=== PATIENT | female | born 1965 | race Caucasian/White ===

== ENCOUNTER 2022-04-13 17:14 | Emergency (ER) | payer MEDICAID ==
[~2022-04-13] VITALS: Ht 162.6 cm; Wt 63.2 kg
[2022-04-13 17:28] VITALS: BP 138/82
--- NOTE | 2022-04-13 17:40 | NUR ---
BIB SELF C/O 11/06 LEFT FOREARM PAIN, REDNESS, SWELLING S/P BUG BITE X YESTERDAY.
[2022-04-13] MEDS ORDERED: CEPH-588 PO (18:28)
[2022-04-13] MEDS ORDERED: CETI10SG1 PO (18:28)
[2022-04-13] MEDS ORDERED: ACET-10509 PO (18:28)
[2022-04-13 18:38] VITALS: BP 135/83
--- NOTE | 2022-04-13 18:38 | NUR ---
Patient discharged with v/s stable. Written and verbal after care instructions given. Patient alert, oriented and verbalized understanding of instructions. Ambulatory with steady gait. All questions addressed prior to discharge. ID band removed. Patient advised to follow up with PMD. Rx of Tylenol, Keflex and Zyrtec given. Opportunity to ask questions provided and answered.
--- NOTE | 2022-04-13 18:40 | NUR ---
The patient's care was reviewed and supervised by Jacqui Akers RN.
== END 2022-04-13 18:38 | disposition home or self-care (01) ==
LOC: MED 17:14
DX: L03.114 Cellulitis of left upper limb (principal)
CPT/HCPCS: 99283

== ENCOUNTER 2023-06-05 20:15 | Emergency (ER) | payer BC, MEDICAID ==
[~2023-06-05] VITALS: Ht 160 cm; Wt 62.6 kg
[~2023-06-05 20:15] MED LIST: ACET-10509 PO; CEPH-588 PO; CETI10SG1 PO
[2023-06-05 20:19] VITALS: BP 128/82; PULSE 78; RESP 16; TEMP 96.2; O2SAT 100
[2023-06-05] MEDS ORDERED: ONDANSETRON 4 MG ODT PO ONE (21:15)
[2023-06-05] MEDS ORDERED: ACETAMINOPHEN EXTRA STRENGTH 500 MG TAB PO ONE (21:15)
[2023-06-05] MEDS ORDERED: CIPR7.5S OT (21:48)
[2023-06-05] MEDS ORDERED: ACET15SO36 LEFT EAR (21:48)
[2023-06-05 22:10] VITALS: BP 128/82; PULSE 78; RESP 16; TEMP 96.2; O2SAT 100
== END 2023-06-05 22:10 | disposition home or self-care (01) ==
LOC: MED 20:15
DX: H61.22 Impacted cerumen, left ear (principal); H66.92 Otitis media, unspecified, left ear; Z79.899 Other long term (current) drug therapy; Z79.2 Long term (current) use of antibiotics; Z88.6 Allergy status to analgesic agent
CPT/HCPCS: 69209; 99283; Q0162

== ENCOUNTER 2023-10-06 18:37 | Emergency (ER) | payer BC ==
[~2023-10-06] VITALS: Ht 160 cm; Wt 71.2 kg
[~2023-10-06 18:37] MED LIST changes: +ACET15SO36 LEFT EAR; +CIPR7.5S OT
[2023-10-06 18:41] VITALS: BP 116/76; PULSE 101; RESP 18; TEMP 98.3; O2SAT 99
[2023-10-06] MEDS: ACETAMINOPHEN EXTRA STRENGTH 500 MG TAB PO ONE (21:38)
[2023-10-06] MEDS: diazePAM 5 MG TAB PO ONE (21:38)
[2023-10-06] MEDS: KETOROLAC 30 MG/ML VIAL IVP ONE (21:40)
[2023-10-06] MEDS: LIDOCAINE 5% 1 EA PATCH TP ONE (21:40)
[2023-10-06 21:48] LABS: BASOPHILS % (AUTO) 0.7 % (0.0-2.0); EOSINOPHILS # (AUTO) 0.3 K/uL (0-0.4); HEMATOCRIT 38.7 % (36-48); HEMOGLOBIN 13.1 g/dL (12.0-16.0); LYMPHOCYTES # (AUTO) 2.1 K/uL (2.5-16.5); LYMPHOCYTES % (AUTO) 37.3 % (20.5-51.1); MEAN CORPUSCULAR HEMOGLOBIN 31 pg (27-31); MEAN CORPUSCULAR HGB CONC 34 g/dL (33-37); MEAN CORPUSCULAR VOLUME 90.7 fL (80-94); MONOCYTES # (AUTO) 0.5 K/uL (0.8-1.0); MONOCYTES % (AUTO) 8.3 % (1.7-9.3); NEUTROPHILS # (AUTO) 2.8 K/uL (1.8-7.7); NEUTROPHILS % (AUTO) 48.7 % (42.2-75.2); PLATELET COUNT (AUTO) 248 K/uL (140-450); RED BLOOD CELL COUNT(AUTO) 4.26 MIL/uL (4.20-5.40); RED CELL DISTRIBUTION WIDTH 13.9 % (11.6-13.7); WHITE BLOOD COUNT (AUTO) 5.7 K/uL (4.8-10.8)
[2023-10-06 21:56] LABS: ANION GAP 13.6 (8-16); CALCIUM 9.2 mg/dL (8.5-10.1); CARBON DIOXIDE 27.9 mmol/L (21-32); CREATININE 0.7 mg/dL (0.6-1.3); POTASSIUM 3.5 mmol/L (3.5-5.1)
[2023-10-06 21:58] LABS: ALBUMIN 3.9 g/dL (3.4-5.0); BILIRUBIN,DIRECT 0.1 mg/dL (0.0-0.3)
[2023-10-06 22:14] LABS: TOTAL BILIRUBIN 0.3 mg/dL (0.0-1.0); TOTAL PROTEIN, SERUM 7.5 g/dL (6.4-8.2)
[2023-10-06 22:58] LABS: APPEARANCE,URINE CLEAR (CLEAR); BILIRUBIN,URINE NEGATIVE (NEGATIVE); BLOOD, URINE NEGATIVE (NEGATIVE); COLOR,URINE YELLOW (YELLOW); LEUKOCYTE ESTERASE ,URINE NEGATIVE (NEGATIVE); NITRITE, URINE NEGATIVE (NEGATIVE); PH,URINE 6.5 (5.0-9.0); PROTEIN,URINE NEGATIVE (NEGATIVE); UGLUCOSE NEGATIVE (NEGATIVE); UROBILINOGEN,URINE 0.2 EU/dL (0.2 - 1)
[2023-10-06 23:30] VITALS: BP 122/73; PULSE 92; RESP 18; TEMP 98; O2SAT 99
== END 2023-10-06 23:30 | disposition home or self-care (01) ==
LOC: MED 18:37
DX: M54.50 Low back pain, unspecified (principal); Z79.899 Other long term (current) drug therapy; Z88.6 Allergy status to analgesic agent
CPT/HCPCS: 36415; 80048; 80076; 81003; 83690; 85025; 96374; 99284; J1885